=== PATIENT | female | born 1935 | race Caucasian/White ===

== ENCOUNTER 2016-12-17 17:19 | Emergency (ER) | payer OTHER, MEDICARE | END 2016-12-17 22:58 | disposition home or self-care (01) | LOC: ER1 17:19 | DX: S61.212A Laceration without foreign body of right middle finger without damage to nail, initial encounter (principal); S63.502A Unspecified sprain of left wrist, initial encounter; S80.211A Abrasion, right knee, initial encounter; S00.81XA Abrasion of other part of head, initial encounter; I10 Essential (primary) hypertension; Z88.0 Allergy status to penicillin; Z88.2 Allergy status to sulfonamides; V43.62XA Car passenger injured in collision with other type car in traffic accident, initial encounter; Y92.410 Unspecified street and highway as the place of occurrence of the external cause | CPT/HCPCS: 70450; 72125; 73110; 73130; 73564; 99284 ==

== ENCOUNTER → 2020-11-15 | Outpatient (CLI) | payer MEDICARE, OTHER | LOC: RAD 11-06 08:30 | DX: R13.10 Dysphagia, unspecified (principal); K44.9 Diaphragmatic hernia without obstruction or gangrene | CPT/HCPCS: 74230; 92611-GN ==